=== PATIENT | male | born 1975 | race African-American/Black ===

== ENCOUNTER 2017-11-01 10:57 | Emergency (ER) | payer OTHER ==
[~2017-11-01] VITALS: Ht 167.6 cm; Wt 68.0 kg
[2017-11-01] MEDS ORDERED: DOXYCYCLINE 10100 MG PO (13:28)
== END 2017-11-01 13:43 | disposition home or self-care (01) ==
LOC: ER 10:57
DX: Z91.19 Patient's noncompliance with other medical treatment and regimen (principal); F41.9 Anxiety disorder, unspecified; R56.9 Unspecified convulsions